=== PATIENT | female | born 1940 | race Caucasian/White ===

== ENCOUNTER → 2016-10-16 | Outpatient (CLI) | payer MEDICARE, OTHER, MEDICAID ==
[~2016-10-16] MED LIST: AMLO2.5T PO; BUDE0.2510 INH; CARB10DR2 BOTH EYES; CRAN405C PO; FURO-154 PO; GABA-305 PO; GABA-338 PO; HYDR-347 PO; HYDR-4009 PO; INSU100C6 SQ; INSU100V12 SQ; INSU100V13 SQ; IPRA3AMP AEROSOL; LIDO700A3 TOP; LISI10TA7 PO; LORA0.5T2 PO; LORA0.5T86 PO; MAGN400O4 PO; MAGN400T31 PO; MELA3TAB30 PO; MEMA28CA PO; MENT118G TOP; NITR0.4T39 SL; NITR100C PO; OMEP20TA2 PO; POLY17PO6 PO; RIVA15TA PO; RIVA20TA PO; SALI10004 PO; SENN1TAB79 PO; SERT50TA PO
== END ==
LOC: LABN.PM 13:30
PROVIDERS: ATTEND Family Medicine
DX: E11.9 Type 2 diabetes mellitus without complications (principal)
CPT/HCPCS: 82043

== ENCOUNTER → 2016-10-17 | Outpatient (CLI) | payer MEDICARE, OTHER, MEDICAID ==
[2016-10-17 07:24] LABS: ANION GAP 14 MEQ/L (5-15); BUN/CREATININE RATIO 21 RATIO (6-26); CALCIUM 9.3 MG/DL (8.4-10.2); CHLORIDE 99 MEQ/L (98-107); CO2 - CARBON DIOXIDE 27 MEQ/L (22-30); CREATININE 1.1 MG/DL (0.7-1.2); GLOMERULAR FILTRATION RATE 48; GLUCOSE 225 MG/DL (65-110); POTASSIUM 4.8 MEQ/L (3.6-5); SODIUM 140 MEQ/L (134-144)
[2016-10-17 08:05] LABS: HEMOGLOBIN A1C 9.6 % (6.1-7.9)
== END ==
LOC: LABNH.PM 02:03
PROVIDERS: ATTEND Family Medicine
DX: E11.9 Type 2 diabetes mellitus without complications (principal); R35.8 Other polyuria
CPT/HCPCS: 36415; 80048; 83036; P9604

== ENCOUNTER → 2016-10-31 | Outpatient (CLI) | payer MEDICARE, OTHER, MEDICAID ==
[2016-10-31 23:48] LABS: BLOOD, URINE NEGATIVE (NEGATIVE); COLOR,URINE YELLOW (YELLOW); LEUKOCYTE ESTERASE ,URINE NEGATIVE (NEGATIVE); NITRITE,URINE NEGATIVE (NEGATIVE); UROBILINOGEN,URINE 0.2 EU/DL (NORMAL)
== END ==
LOC: LABN.PM 23:30
PROVIDERS: ATTEND Family Medicine
DX: N39.0 Urinary tract infection, site not specified (principal)
CPT/HCPCS: 81003; 87086